=== PATIENT | male | born 1995 | race Caucasian/White ===

== ENCOUNTER 2017-10-05 11:50 | Outpatient (CLI) | payer OTHER ==
[2017-10-05 12:36] LABS: Mean Corpuscular HGB CONC 32.3 g/dL (32.0-36.0); Mean Corpuscular Hemoglobin 28.9 pg (27.0-31.0); Mean Corpuscular Volume 89.5 fl (80.0-94.0); Mean Platelet Volume 8.1 fL (7.4-10.4); Platelet Count 234 thou/uL (130-400); RBC Distribution Width 11.5 % (11.5-14.5); Red Blood Cell (RBC) Count 5.19 mill/uL (4.70-6.10); White Blood Cell (WBC) Count 6.7 thou/uL (4.8-10.8)
[2017-10-05 12:49] LABS: Anion Gap 12 mmol/L (10-20); BUN (Urea Nitrogen) 15 mg/dL (8.9-20.6); Calc. Creatinine Clearance 0 mL/min (70-130); Calcium 9.7 mg/dL (7.8-10.44); Carbon Dioxide 22 mmol/L (22-29); Chloride 109 mmol/L (98-107); Estimated GFR-MDRD 89; Glucose 100 mg/dL (70-105); Potassium 4.5 mmol/L (3.5-5.1); Sodium 138 mmol/L (136-145)
== END 2017-10-05 11:51 | disposition home or self-care (01) ==
LOC: LABBT 11:50
PROVIDERS: ATTEND Specialist
DX: Z01.812 Encounter for preprocedural laboratory examination (principal); L05.91 Pilonidal cyst without abscess
CPT/HCPCS: 80048; 85027

== ENCOUNTER 2017-10-08 05:52 | Day surgery (SDC) | payer OTHER ==
[2017-10-05 12:14] VITALS: BMI 34.0
[2017-10-08] MEDS ORDERED: Bupivacaine/Epinephrine 0.25% 30 ML VIAL ONE (06:39)
[2017-10-08] MEDS ORDERED: Bacitracin Zinc Ointment 30 gm TUBE ONE (06:39)
[2017-10-08] MEDS ORDERED: CEFAZOLIN/Water 2 GM/20 ML SYRINGE ONE (06:58)
[2017-10-08] MEDS ORDERED: Ketorolac Tromethamine 30 MG/ML VIAL ONE (06:58)
[2017-10-08] MEDS ORDERED: Fentanyl 100 MCG/2 ML VIAL ONE ×2 (07:07)
[2017-10-08] MEDS ORDERED: Midazolam HCl 2 mg/2 ml Vial ONE (07:17)
[2017-10-08] MEDS ORDERED: Ropivacaine 0.5% HCl/PF (150 MG/30 ML VIAL) ONE (07:29)
[2017-10-08] MEDS ORDERED: Promethazine HCl 25 MG/ML VIAL ONE (09:34)
--- NOTE | 2017-10-08 10:22 | OP ---
DATE OF PROCEDURE: 10/08/2017 PREOPERATIVE DIAGNOSIS: Pilonidal disease. POSTOPERATIVE DIAGNOSIS: Pilonidal disease. OPERATION PERFORMED: Pilonidal excision with left lateral flap elevation and layered closure. SURGEON: Dr. Jeovany Emery ANESTHESIA: General endotracheal. INDICATIONS: The patient is a 22-year-old white male. He had presented a few months ago with an obv ious pilonidal abscess. When the incision and drainage was performed there was a large volume of pur ulence and hair within the wound. This healed with appropriate wound care. He presents at this time for definitive excision to prevent recurrence. OPERATIVE PROCEDURE IN DETAIL: Informed consent was obtained. The patient was taken to the operatin g room where general endotracheal anesthesia obtained with the patient in supine position. He was th en rolled over into a prone jackknife position. The pilonidal area was trimmed of hair. Buttocks we re taped apart and the area was prepped with ChloraPrep and draped in sterile fashion. Local anesthe tic was infiltrated circumferentially using 0.25% Marcaine with epinephrine. The pilonidal pits were cannulated with an Angiocath and blue dye with peroxide was infiltrated into the tracts. An ellipti chuck incision was created encompassing the prior abscess cavity as well as the 2 pilonidal pits. Diss ection was carried through the skin and subcutaneous tissue down to the sacral fascia. There was melquiades e dye in the deep portions of the tissue just anterior to the sacral fascia. All of this was of cour se removed. The specimen was passed off the field. Hemostasis was meticulously achieved with electr ocautery. A flap was then elevated on the right side, elevating the skin and fatty tissue off the un derlying sacral and gluteal fascia. The abscess cavity head deviated to the left hand side. Thus, a n attempt was to mobilize the flap to the patient's left side off of the midline. The wound was then closed, approximated deep layers and closing the deep space with interrupted sutur es of 2-0 Vicryl. Skin edges were approximated with interrupted vertical mattress sutures of 2-0 nyl on and the skin edges approximated with a running suture of 4-0 Prolene. Antibiotic ointment and dry gauze dressing and mesh pants were applied. There were no complications. The patient tolerated the procedure well and was taken to recovery in stable condition.
[2017-10-08] MEDS ORDERED: Dexamethasone 20 MG/5 ML VIAL ONE (14:51)
[2017-10-08] MEDS ORDERED: Lidocaine 1% PF 5 ML VIAL ONE (14:51)
[2017-10-08] MEDS ORDERED: Ondansetron HCl/PF 4 MG/2 ML Vial ONE (14:51)
[2017-10-08] MEDS ORDERED: Succinylcholine Chloride 20 MG/ML 10 ml SYRINGE FS ONE (14:51)
[2017-10-08] MEDS ORDERED: Propofol 200 MG/20 ML VIAL ONE (14:51)
== END 2017-10-08 10:30 | disposition home or self-care (01) ==
LOC: SDC 05:52
PROVIDERS: ATTEND Specialist
PROC: 0JB90ZZ Excision of Buttock Subcutaneous Tissue and Fascia, Open Approach (ICD-10-PCS; principal; 2017-10-08)
PROC: 0HX8XZZ Transfer Buttock Skin, External Approach (ICD-10-PCS; principal; 2017-10-08)
DX: L05.91 Pilonidal cyst without abscess (principal); F17.210 Nicotine dependence, cigarettes, uncomplicated; F41.9 Anxiety disorder, unspecified; Z88.0 Allergy status to penicillin; Z88.8 Allergy status to other drugs, medicaments and biological substances
CPT/HCPCS: 88304; 96374; J0131; J1100; J1885; J2001; J2250; J2405; J2550; J2704; J2795; J3010; Q9968

== ENCOUNTER 2018-02-26 07:42 | Emergency (ER) | payer OTHER ==
[2018-02-26 08:27] LABS: #Basophils 0.1 thou/uL (0.0-0.2); #Eosinphils 0.1 thou/uL (0.0-0.7); #Lymphocytes 3.8 thou/uL (1.20-3.40); #Monocytes 0.6 thou/uL (0.11-0.59); #Neutrophils 3.7 thou/uL (1.40-6.50); %Basophils 0.6 % (0.0-1.0); %Lymphocytes 46.7 % (21.0-51.0); %Monocytes 7.1 % (0.0-10.0); %Neutrophils 44.6 % (42.0-75.0); Hemoglobin 14.3 g/dL (14.0-18.0); Mean Corpuscular HGB CONC 34.5 g/dL (32.0-36.0); Mean Corpuscular Hemoglobin 29.9 pg (27.0-31.0); Mean Corpuscular Volume 86.8 fL (78.0-98.0); Mean Platelet Volume 7.7 fL (7.4-10.4); Platelet Count 219 thou/uL (130-400); RBC Distribution Width 11.2 % (11.5-14.5); Red Blood Cell (RBC) Count 4.78 mill/uL (4.70-6.10); White Blood Cell (WBC) Count 8.2 thou/uL (4.8-10.8)
[2018-02-26] MEDS ORDERED: Ondansetron HCl/PF 4 MG/2 ML Vial ONE (08:46)
[2018-02-26] MEDS ORDERED: Ketorolac Tromethamine 30 MG/ML VIAL ONE (08:55)
[2018-02-26] MEDS ORDERED: Morphine 4 MG/ML VIAL ONE ×2 (09:03→10:49)
[2018-02-26 09:06] LABS: Bilirubin Small (Negative); Blood, Urine Large (Negative); Glucose, Urine (Dipstick) Negative (Negative); Leukocyte Negative (Negative); Nitrite Negative (Negative); Protein, Urine (Dipstick) Trace mg/dL (Neg-Trace); Urobilinogen 0.2 mg/dL (0.2-1.0); pH, Urine 5.5 (5.0-9.0)
[2018-02-26 09:08] LABS: Clarity Slightly Cloudy (Clear)
[2018-02-26 09:17] LABS: Specific Gravity, Urine 1.031 (1.002-1.036)
[2018-02-26 09:18] LABS: WBC/HPF 0-3 HPF (0-3)
[2018-02-26 09:19] LABS: Bacteria/HPF 1+ HPF (None Seen)
[2018-02-26 09:22] LABS: ALT (SGPT) 53 U/L (8-55); AST (SGOT) 14 U/L (5-34); Albumin 4.7 g/dL (3.5-5.0); Alkaline Phosphatase 135 U/L (40-150); Anion Gap 15 mmol/L (10-20); BUN (Urea Nitrogen) 22 mg/dL (8.9-20.6); Bilirubin, Total 0.7 mg/dL (0.2-1.2); Calc. Creatinine Clearance 0 mL/min (70-130); Calcium 9.7 mg/dL (7.8-10.44); Carbon Dioxide 23 mmol/L (22-29); Chloride 106 mmol/L (98-107); Estimated GFR-MDRD 79; Globulin 2.8 g/dL (2.4-3.5); Glucose 140 mg/dL (70-105); Potassium 3.6 mmol/L (3.5-5.1); Protein, Total 7.5 g/dL (6.0-8.3); Sodium 140 mmol/L (136-145)
--- NOTE | 2018-02-26 09:44 | CT ---
ABDOMEN AND PELVIC CT SCAN WITHOUT IV CONTRAST: HISTORY: A 22-year-old male with a history of abdominal pain primarily in the right upper quadrant. He has a history of kidney stones. FINDINGS: He lung bases are clear. The visualized liver, gallbladder, pancreas, spleen, and adrenal glands are unremarkable. Multiple very small bilateral nonobstructing renal calculi. Dilatation of the right upper renal collecting system and right ureter secondary to obstruction from an approximately 0.3 x 0 .4 cm diameter distal right ureteral calculus within roughly a cm of the ureterovesicular junction. No bowel obstruction. Normal-appearing appendix. No abscess, adenopathy, or abnormal fluid collecti on. IMPRESSION: A 0.3 x 0.4 cm distal right ureteral calculus. Tiny nonobstructing bilateral renal calculi. POS: [facility]
== END 2018-02-26 11:25 | disposition home or self-care (01) ==
LOC: ERS 07:42
DX: N20.0 Calculus of kidney (principal); F41.9 Anxiety disorder, unspecified
CPT/HCPCS: 36415; 74176; 80053; 81003; 81015; 83690; 85025; 96361; 96374; 96375; 96376; J1885; J2270; J2405